=== PATIENT | female | born 1985 | race Two or more races ===

== ENCOUNTER 2022-10-12 21:57 | Emergency (ER) | payer BC, OTHER ==
[~2022-10-12] VITALS: Ht 162.6 cm; Wt 100.0 kg
[2022-10-12 21:57] VITALS: BP 169/98; PULSE 90; RESP 18; O2SAT 97
[2022-10-12] MEDS ORDERED: TETANUS-DIPTH-ACEL PERTUSSIS 0.5ML SYR Tdap IM ONE (23:45)
[2022-10-13] MEDS ORDERED: CLIN300C70 PO (00:04)
[2022-10-13] MEDS ORDERED: IBUP-1455 PO (00:04)
== END 2022-10-13 00:14 | disposition home or self-care (01) ==
LOC: ER 21:57
DX: S91.331A Puncture wound without foreign body, right foot, initial encounter (principal); L03.115 Cellulitis of right lower limb; W22.8XXA Striking against or struck by other objects, initial encounter; Y93.89 Activity, other specified; Y92.89 Other specified places as the place of occurrence of the external cause; Y99.8 Other external cause status
CPT/HCPCS: 90471; 90715